=== PATIENT | female | born 1960 | race Caucasian/White ===

== ENCOUNTER 2019-05-02 10:50 | Emergency (ER) | payer SELFPAY ==
--- NOTE | 2019-05-02 12:08 | RAD ---
XR Chest Pa Lat STANDARD History: Cough Comparison: None. Findings: Lungs are clear. No pneumothorax or effusion. Cardiac silhouette and mediastinal contours a re within normal limits. No acute osseous abnormality. Impression: No acute intrathoracic abnormality
== END 2019-05-02 12:30 | disposition home or self-care (01) ==
LOC: NAV ERS 10:50
DX: J20.9 Acute bronchitis, unspecified (principal); F41.9 Anxiety disorder, unspecified; F17.210 Nicotine dependence, cigarettes, uncomplicated
CPT/HCPCS: 71046

== ENCOUNTER 2019-10-09 15:10 | Emergency (ER) | payer SELFPAY ==
--- NOTE | 2019-10-09 16:10 | RAD ---
EXAM: 3 views of the right shoulder HISTORY: Shoulder pain COMPARISON: None FINDINGS: There is no evidence of acute fracture or dislocation. No degenerative changes are present. No soft tissue swelling is seen. The visualized thorax is unremarkable. IMPRESSION: No evidence of acute osseous abnormality.
[2019-10-09] MEDS ORDERED: traMADol HCl 50 MG TAB ONE (16:14)
--- NOTE | 2019-10-09 16:14 | CT ---
EXAM: CT pelvis without contrast HISTORY: Left hip pain and groin pain COMPARISON: None TECHNIQUE: Multiple contiguous axial images were obtained and a CT of the pelvis without contrast. Sa gittal and coronal reformats were performed. FINDINGS: No pelvic fractures are seen. No fracture of either proximal femur is seen. Mild degenerat carlos changes seen in the right hip. No degenerative changes seen in the left hip. Atherosclerotic calcifications are seen in the aorta. Degenerative changes are seen in the lumbar spi ne. The soft tissues surrounding the pelvis are unremarkable. IMPRESSION: Mild right hip osteoarthritis; otherwise unremarkable exam.
== END 2019-10-09 16:45 | disposition home or self-care (01) ==
LOC: NAV ERS 15:10
DX: S76.012A Strain of muscle, fascia and tendon of left hip, initial encounter (principal); M25.511 Pain in right shoulder; Z86.73 Personal history of transient ischemic attack (TIA), and cerebral infarction without residual deficits; F17.210 Nicotine dependence, cigarettes, uncomplicated; F41.9 Anxiety disorder, unspecified; X58.XXXA Exposure to other specified factors, initial encounter
CPT/HCPCS: 72192

== ENCOUNTER 2021-09-19 11:13 | Outpatient (CLI) | payer OTHER | END 2021-09-19 11:14 | disposition home or self-care (01) | LOC: NAV RAD 11:13 | PROVIDERS: ATTEND Nurse Practitioner Family | DX: M54.41 Lumbago with sciatica, right side (principal); R06.02 Shortness of breath | CPT/HCPCS: 71046; 72100 ==

== ENCOUNTER 2022-05-11 10:08 | Emergency (ER) | payer OTHER ==
[2022-05-11] MEDS ORDERED: Dexamethasone 20 MG/5 ML VIAL ONE (10:35)
[2022-05-11] MEDS ORDERED: Ketorolac Tromethamine 30 MG/ML VIAL ONE (10:35)
[2022-05-11 10:53] LABS: #Basophils 0.1 thou/uL (0.0-0.2); #Eosinphils 0.4 thou/uL (0.0-0.7); #Lymphocytes 2.2 thou/uL (1.20-3.40); #Monocytes 0.5 thou/uL (0.11-0.59); #Neutrophils 4.1 thou/uL (1.40-6.50); %Basophils 1.2 % (0.0-1.0); %Eosinophils 5.9 % (0.0-10.0); %Lymphocytes 29.5 % (21.0-51.0); %Monocytes 7.2 % (0.0-10.0); %Neutrophils 56.2 % (42.0-75.0); Mean Corpuscular HGB CONC 32.2 g/dL (32.0-36.0); Mean Corpuscular Hemoglobin 32.7 pg (27.0-31.0); Mean Platelet Volume 6.4 fL (7.4-10.4); Platelet Count 368 10x3/uL (130-400); RBC Distribution Width 12.6 % (11.5-14.5); Red Blood Cell (RBC) Count 4.27 mill/uL (4.20-5.40); White Blood Cell (WBC) Count 7.3 10x3/uL (4.8-10.8)
[2022-05-11 10:54] LABS: Anion Gap 14 mmol/L (10-20); BUN (Urea Nitrogen) 7 mg/dL (9.8-20.1); Calc. Creatinine Clearance 0 mL/min (70-130); Calcium 9.5 mg/dL (7.8-10.44); Carbon Dioxide 26 mmol/L (23-31); Chloride 103 mmol/L (98-107); Estimated GFR 90; Glucose 100 mg/dL (80-115); Magnesium 1.7 mg/dL (1.6-2.6); Potassium 4.4 mmol/L (3.5-5.1); Sodium 139 mmol/L (136-145); Uric Acid 5.2 mg/dL (2.6-6.0)
== END 2022-05-11 12:16 | disposition home or self-care (01) ==
LOC: NAV ERS 10:08
DX: M79.671 Pain in right foot (principal); M79.89 Other specified soft tissue disorders; F17.210 Nicotine dependence, cigarettes, uncomplicated; Z86.73 Personal history of transient ischemic attack (TIA), and cerebral infarction without residual deficits
CPT/HCPCS: 80048; 83735; 84550; 85025; 85379; 86140; 96372; 96374; 96375; J1100; J1650; J1885

== ENCOUNTER 2023-05-18 17:53 | Emergency (ER) | payer OTHER, SELFPAY | END 2023-05-18 18:32 | disposition home or self-care (01) | LOC: NAV ERS 17:53 | DX: J06.9 Acute upper respiratory infection, unspecified (principal); F17.210 Nicotine dependence, cigarettes, uncomplicated | CPT/HCPCS: 71046 ==

== ENCOUNTER 2023-12-13 10:10 | Emergency (ER) | payer OTHER ==
[2023-12-13 10:49] LABS: #Basophils 0.1 thou/uL (0.0-0.2); #Eosinphils 0.1 thou/uL (0.0-0.7); #Lymphocytes 1.9 thou/uL (1.20-3.40); #Monocytes 0.7 thou/uL (0.11-0.59); #Neutrophils 7.1 thou/uL (1.40-6.50); %Eosinophils 0.7 % (0.0-10.0); %Lymphocytes 19.4 % (21.0-51.0); %Monocytes 7.2 % (0.0-10.0); %Neutrophils 71.7 % (42.0-75.0); Hematocrit 41.2 % (36.0-47.0); Hemoglobin 12.6 g/dL (12.0-16.0); Mean Corpuscular HGB CONC 30.7 g/dL (32.0-36.0); Mean Corpuscular Hemoglobin 29.8 pg (27.0-31.0); Mean Corpuscular Volume 97.3 fl (78.0-98.0); Mean Platelet Volume 6.3 fL (7.4-10.4); Platelet Count 344 10x3/uL (130-400); RBC Distribution Width 13.2 % (11.5-14.5); Red Blood Cell (RBC) Count 4.23 mill/uL (4.20-5.40); White Blood Cell (WBC) Count 9.8 10x3/uL (4.8-10.8)
[2023-12-13] MEDS ORDERED: Ipratropium/Albuterol 3 ML NEB ONE ×2 (10:54→12:47)
[2023-12-13 11:02] LABS: ALT (SGPT) 8 U/L (8-55); AST (SGOT) 10 U/L (5-34); Albumin 3.4 g/dL (3.4-4.8); Alkaline Phosphatase 104 U/L (40-110); Anion Gap 14 mmol/L (10-20); BUN (Urea Nitrogen) 5 mg/dL (9.8-20.1); Bilirubin, Total 0.3 mg/dL (0.2-1.2); Calc. Creatinine Clearance 0 mL/min (70-130); Calcium 9.4 mg/dL (7.8-10.44); Carbon Dioxide 26 mmol/L (23-31); Chloride 105 mmol/L (98-107); Estimated GFR 86; Globulin 3.8 g/dL (2.4-3.5); Glucose 113 mg/dL (80-115); Protein, Total 7.2 g/dL (5.8-8.1); Sodium 141 mmol/L (136-145)
[2023-12-13 11:38] LABS: SARS-CoV-2 E Target Negative; SARS-CoV-2 N2 Target Negative; SARS-CoV-2 NAA Rapid Test Not Detected (NotDetected); SARS-CoV-2 RdRP gene Negative
[2023-12-13 12:10] LABS: Bilirubin Negative (Negative); Blood, Urine Trace (Negative); Clarity Clear (Clear); Glucose, Urine (Dipstick) Negative (Negative); Ketone, Urine Negative (Negative); Leukocyte Negative (Negative); Nitrite Negative (Negative); Protein, Urine (Dipstick) Trace mg/dL (Neg-Trace); Urobilinogen 0.2 mg/dL (Less than 2)
[2023-12-13 12:19] LABS: Specific Gravity, Urine 1.026 (1.002-1.036)
[2023-12-13 12:23] LABS: Bacteria/HPF Rare-Few HPF (None Seen); Mucous/LPF Few LPF (<2+); RBC/HPF 0-3 HPF (0-3); WBC/HPF None Seen HPF (0-3)
[2023-12-13] MEDS ORDERED: methylPREDNISolone Sod Succ/PF 125 MG/2 ML VIAL ONE (12:47)
[2023-12-13] MEDS ORDERED: Azithromycin 250 MG TAB ONE (12:47)
== END 2023-12-13 13:34 | disposition home or self-care (01) ==
LOC: NAV ERS 10:10
DX: J44.1 Chronic obstructive pulmonary disease with (acute) exacerbation (principal); F17.210 Nicotine dependence, cigarettes, uncomplicated; Z79.899 Other long term (current) drug therapy
CPT/HCPCS: 71045; 71275; 80053; 81001; 83880; 85025; 85379; 87804; 93005; 96374; J2919; J7620; U0002